=== PATIENT | female | born 1970 ===

== ENCOUNTER 2021-10-01 21:04 | Emergency (ER) | payer OTHER ==
--- NOTE | 2021-10-01 23:31 | ER ---
Nurse's Notes [facility] Name: Fabiola Moreno Age: 51 yrs Sex: Female : 1970 Arrival Date: 10/01/2021 Time: 21:06 Bed 10 Private MD: Diagnosis: Presentation: 10/01 21:17 Chief complaint: Patient states: possible anxiety attack. Coronavirus screen: Vaccine [facility] status: Patient reports being unvaccinated. At this time, the client does not indicate any symptoms associated with coronavirus-19. Ebola Screen: Patient negative for fever greater than or equal to 101.5 degrees Fahrenheit, and additional compatible Ebola Virus Disease symptoms. Initial Sepsis Screen: Does the patient meet any 2 criteria? No. Patient's initial sepsis screen is negative. Does the patient have a suspected source of infection? No. Patient's initial sepsis screen is negative. Risk Assessment: Do you want to hurt yourself or someone else? Patient reports no desire to harm self or others. Onset of symptoms was October 01, 2021. 21:17 Method Of Arrival: Wheelchair [facility] 21:17 Acuity: AJ 4 [facility] Triage Assessment: 21:18 General: Appears in no apparent distress. Behavior is cooperative, appropriate for age, [facility] anxious. Pain: Complains of pain in back. 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 - Social history:: Smoking status: Patient reports the use of cigarette tobacco products, smokes one pack cigarettes per day. Vital Signs: 21:17 BP 162 / 100; Pulse 74; Resp 20; Temp 98.2(O); Pulse Ox 99% on R/A; Weight 63.5 kg; [facility] Height 4 ft. 9 in. (144.78 cm); Pain 5/10; 21:17 Body Mass Index 30.30 (63.50 kg, 144.78 cm) [facility] ED Course: 21:06 Patient arrived in ED. [facility] 21:18 Triage completed. [facility] 21:18 Arm band placed on right wrist. [facility] Administered Medications: No medications were administered Outcome: 23:30 Patient left the ED. [facility] Signatures: Salma Kennedy bp1 Stella Patel, RN RN [facility]
[2021-10-02 01:22] VITALS: BP 162/100; TEMP 98.2; O2SAT 99
== END 2021-10-01 23:30 | disposition left against medical advice (07) ==
LOC: ER 21:04
DX: F41.9 Anxiety disorder, unspecified (principal); Z53.29 Procedure and treatment not carried out because of patient's decision for other reasons
CPT/HCPCS: 99281